=== PATIENT | female | born 1940 | race Caucasian/White ===

== ENCOUNTER 2019-10-31 20:59 | Inpatient (IN) | payer OTHER, MEDICAID ==
[~2019-10-31] VITALS: Ht 152.4 cm; Wt 64.9 kg
[2019-10-31 20:59] VITALS: BP_SYST 133
--- NOTE | 2019-10-31 20:59 | NUR ---
Placed in room 6 . Placed on quality assurance monitor final, blood pressure machine and pulse oximeter. To gown for exam. Side rails up. Assumed care.
--- NOTE | 2019-10-31 21:10 | NUR ---
Patient arrived via [facility]. Patient was brought in at request of daughter. Patients daughter at bedside. Daughter states patient has been deteriorating over the past 2 weeks. Noting increased confusion, back pain, and frequent falls. Patient had a mechanical fall per daughter today, no head strike or LOC. Patient states she has had ongoing back pain, worsening last week. Patient was seen at urgent care on 10/28/2019, given a prescription for baclofen to take before bedtime. Per daughter, given 30 pills, and she counted today and there are 20 remaining. Concerns were brought up regarding decline. Per family, they do not want her to go to a home, but concerned regarding status. Will continue to follow up.
--- NOTE | 2019-10-31 21:26 | NUR ---
ER at bedside examining patient.
[2019-10-31] MEDS ORDERED: traMADol HCL HCL 50 MG TABLET (ULTRAM) PO ONE (22:30)
[2019-10-31 22:57] LABS: BASOPHILS % (AUTO) 0.1 % (0.0-2.0); EOSINOPHILS % (AUTO) 0.7 % (0.0-4.0); HEMATOCRIT 36.9 % (36-48); HEMOGLOBIN 12.3 g/dL (12.0-16.0); LYMPHOCYTES # (AUTO) 2.9 K/uL (1.0-5.5); LYMPHOCYTES % (AUTO) 42.8 % (20.5-51.5); MEAN CORPUSCULAR HEMOGLOBIN 33 pg (27-31); MEAN CORPUSCULAR HGB CONC 33 % (32-36); MEAN CORPUSCULAR VOLUME 100 fL (79.0-98.0); MONOCYTES # (AUTO) 0.6 K/uL (0.0-1.0); MONOCYTES % (AUTO) 9.3 % (1.7-9.3); NEUTROPHILS # (AUTO) 3.2 K/uL (1.8-7.7); NEUTROPHILS % (AUTO) 47.1 % (40.0-70.0); PLATELET COUNT (AUTO) 230 K/uL (130-430); RED BLOOD CELL COUNT(AUTO) 3.71 MIL/uL (4.2-6.2); RED CELL DISTRIBUTION WIDTH 16.6 % (9.0-15.0); WHITE BLOOD COUNT (AUTO) 6.8 K/uL (4.8-10.8)
--- NOTE | 2019-10-31 22:57 | NUR ---
Patient given pain medication per MD orders. Patient repositioned for comfort, given pillow for comfort.
[2019-10-31 23:00] LABS: ANION GAP 9 (5-15); CALCIUM 8.5 mg/dL (8.4-11.0); CHLORIDE 103 mmol/L (98-107); CREATININE 0.77 mg/dL (0.55-1.30); GLUCOSE 114 mg/dL (70-99); POTASSIUM 3.5 mmol/L (3.5-5.1); SODIUM SERUM 137 mmol/L (136-145); UREA NITROGEN, BLOOD 27 mg/dL (8-21)
[2019-10-31 23:06] LABS: ALANINE AMINOTRANSFERASE 40 U/L (12-78); ALBUMIN 3.4 g/dL (3.4-4.8); ASPARTATE AMINOTRANSFERASE 20 U/L (10-37); LIPASE 82 U/L (73-393); TOTAL BILIRUBIN 0.4 mg/dL (0.0-1.0)
--- NOTE | 2019-10-31 23:23 | NUR ---
Patient becoming more anxious at this time. Patients daughters remain at bedside for comfort. MD aware of anxiety, will follow up regarding orders.
--- NOTE | 2019-10-31 23:24 | NUR ---
Patient and family refusing straight cath at this time. Will continue to follow up.
--- NOTE | 2019-11-01 00:23 | NUR ---
Patient taken to CT scan via gurney. Pain was decreasing at time of travel to CT. Patient was moved over to CT machine and pain intensified, and causing spasms. Pain is rated 9/10. MD gave verbal order for Toradol 30mg IVP after confirming BUN and Creatinine results. Patient given toradol in CT scan. Daughters went to CT with her for comfort.
[2019-11-01] MEDS ORDERED: KETOROLAC TROMETHAMINE 30 MG VIAL IVP ONE (00:30)
[2019-11-01] MEDS ORDERED: KETOROLAC TROMETHAMINE 30 MG VIAL ONE ×2 (00:33→12:48)
--- NOTE | 2019-11-01 00:44 | NUR ---
Patient returned to room from CT. Patient more comfortable from the Toradol administration. Per family patient complaints of head pain now.
[2019-11-01 01:40] LABS: BILIRUBIN,URINE NEGATIVE (NEGATIVE); BLOOD, URINE NEGATIVE (NEGATIVE); CLARITY/URINE CLEAR (CLEAR); COLOR,URINE YELLOW (YELLOW); GLUCOSE,URINE NEGATIVE (NEGATIVE); KETONES,URINE TRACE (NEGATIVE); LEUKOCYTE ESTERASE ,URINE NEGATIVE (NEGATIVE); NITRITE, URINE NEGATIVE (NEGATIVE); PH,URINE 5.5 (5.0-8.0); PROTEIN URINE NEGATIVE (NEGATIVE); UROBILINOGEN,URINE 0.2 (0.2-1.0)
[2019-11-01 01:51] LABS: BARBITURATE, URINE NEGATIVE (NEG <=200); BENZODIAZEPINE, URINE NEGATIVE (NEG <=150); CANNABINOID, URINE NEGATIVE (NEG <=50); COCAINE, URINE NEGATIVE (NEG <=150); METHAMPHETAMINES SCREEN,URINE NEGATIVE (NEG <=500); OPIATE, URINE NEGATIVE (NEG <=100); PHENCYCLIDINE SCREEN,URINE NEGATIVE (NEG <=25); UR TRICYCLIC ANTIDEPRESSANTS NEGATIVE (NEG <=300); URINE AMPHETAMINE NEGATIVE (NEG <=500); URINE METHADONE NEGATIVE (NEG <=200); URINE OXYCODONE SCREEN NEGATIVE (NEG <=100); URINE PROPOXYPHENE SCREEN NEGATIVE (NEG <=300)
--- NOTE | 2019-11-01 02:12 | NUR ---
Patient resting comfortably. Needs are met at this time. Family remains at bedside. Patient VSS at this time. Will continue to follow up and monitor.
--- NOTE | 2019-11-01 03:11 | NUR ---
Patient care endorsed to MARLINE Roche.
[2019-11-01] MEDS ORDERED: LEVO88TA2 PO (04:07)
[2019-11-01] MEDS ORDERED: LISI-209 PO (04:16)
[2019-11-01] MEDS ORDERED: PRED5TAB PO (04:16)
[2019-11-01] MEDS ORDERED: BACL10TA PO (04:16)
[2019-11-01] MEDS ORDERED: METO25TA6 PO (04:16)
[2019-11-01] MEDS ORDERED: METH2.5T PO (04:16)
[2019-11-01] MEDS ORDERED: traMADol HCL HCL 50 MG TABLET (ULTRAM) PO ONE (05:00)
[2019-11-01 08:00] VITALS: BP_SYST 111
--- NOTE | 2019-11-01 08:00 | NUR ---
initial notes rec patient awake alert in a lot of pain accompanied by her daughters. ivl on the r ac intact. no infiltration noted. resp easy and unlabored . bed to the lowest position and side rails up and locked. call light within reached and family at bedside with patient. made patient comfortable.
--- NOTE | 2019-11-01 08:20 | NUR ---
Patient transferred to Med-Surg unit room 105 B on hospital bed. Endorsed bedside report to MST RN using SBAR approach for continuation of care.
[2019-11-01] MEDS ORDERED: HYDROcodone/ACETAMIN 5-325 MG TAB (NORCO/ VICODIN) PO PRN (12:00)
[2019-11-01] MEDS ORDERED: ONDANSETRON HCL 4 MG/2 ML VIAL IVP PRN (12:00)
[2019-11-01] MEDS ORDERED: LORazepam 2 MG/ML VIAL IVP PRN (12:00)
[2019-11-01] MEDS ORDERED: ACETAMINOPHEN 325 MG TABLET PO PRN (12:00)
--- NOTE | 2019-11-01 13:31 | NUR ---
Physical Therapy order has been received and the chart reviewed. Patient and daughters requested to defer the evaluation this afternoon and attempt tomorrow morning because the patient is experiencing severe pain. Nursing has administered pain medication. Plan: Attempt evaluation tomorrow.
[2019-11-01] MEDS: BACLOFEN 10 MG TABLET PO SCH ×2 (13:55→21:54)
[2019-11-01] MEDS: traMADol HCL HCL 50 MG TABLET (ULTRAM) PO PRN (13:56)
[2019-11-01] MEDS: NORMAL SALINE 5 ML DISP.SYRIN IVF SCH ×2 (13:57→21:55)
[2019-11-01] MEDS ORDERED: NORMAL SALINE 5 ML DISP.SYRIN IVF SCH (14:00)
--- NOTE | 2019-11-01 14:20 | NUR ---
DCPA and Senior Security Engineer Contact: INVENTORY ADMINISTRATOR met with Pt. and daughters at bedside, Kathy Galindo , daughter listed as person to notify is Surekha Mercado is he correct number. Pt. is in pain , consented to speak to daughters regarding DCP and care. Pt. has [facility], and [facility]. Pt. PCP is Dr. Dennise Rainey . Pt. lives in and senior independent living complex. Pt has [facility] workers in addition to her 5 daughters who assist and rotate with her care. She was ambulatory, lives on the second floor , complex has and elevator. Minimal assist with a walker. She required minimal assistance with her ADLs through [facility] care givers and family. Pt. was using a walker at home only, no other DME. Pt. has one previous SNF stay from 06/2019 to 09/2019 at [facility] and utilized [facility] for PT/ OT once she returned home. Family stated that they had no preference for SNF or rehab center, [facility] would be okay, however they would like information on other facilities as well. DCP would be to return to home with caregiver support at previous living arrangement. No SS concern at this time. CM, SS and DCP to remain available as needed. Addendum: 11/01/19 at 1425 by Debbie Mauricio LCSW Time correction met w/ family at 11:30 AM
[2019-11-01] MEDS: KETOROLAC TROMETHAMINE 30 MG VIAL IM PRN ×2 (16:49→23:57)
--- NOTE | 2019-11-01 19:00 | NUR ---
closing notes seen by dr luu at bedside and updated re patient condition. no sob noted. resting comfortably at this time. call light withn reached.
--- NOTE | 2019-11-01 19:10 | NUR ---
OPENING NOTES Receive report from morning shift nurse. Patient awake, AOx4. No signs of respiratory distress and discomfort noted. On Room air with O2 sat of 94%, tolerating well. IVF site, patency noted. Call light within reach, patient educated to use call light when assistance is needed, patient verbalized understanding. Safety precautions in place. Bed locked and in lowest position. Bed alarm on. 2 side rails up. Will continue to monitor patient.
[2019-11-01] MEDS ORDERED: DOCUSATE SODIUM 100 MG CAPSULE PO PRN (19:30)
[2019-11-01 20:00] VITALS: BP_SYST 120
--- NOTE | 2019-11-01 21:38 | NUR ---
MED PASS Due medication given at this time, patient tolerated well. No signs of respiratory distress and discomfort noted. Denies pain and discomfort at this time. Safety precautions in place. Will continue to monitor patient.
[2019-11-01] MEDS: METOPROLOL TARTRATE 25 MG TABLET PO SCH (21:55)
[2019-11-01 23:56] VITALS: BP_SYST 109
--- NOTE | 2019-11-01 23:57 | NUR ---
PAIN Patient verbalized 6/10 lower back pain. PRN for pain medication given at this time via IVP, patient tolerated well. No signs of respiratory distress noted. Safety precautions in place. Will continue to monitor patient.
--- NOTE | 2019-11-02 02:32 | NUR ---
RN ROUNDS Patient asleep at this time. No signs of respiratory distress and discomfort noted. Breathing even and unlabored. Safety precautions in place. Call light within reach. Will continue to monitor patient.
[2019-11-02] MEDS: NORMAL SALINE 5 ML DISP.SYRIN IVF SCH ×3 (06:07→20:31)
[2019-11-02] MEDS: KETOROLAC TROMETHAMINE 30 MG VIAL IM PRN ×2 (06:07→12:51)
--- NOTE | 2019-11-02 06:49 | NUR ---
CLOSING NOTES Patient awake at this time. No signs of respiratory distress and discomfort noted. Breathing even and unlabored. IV site, patency noted. Call light within reach. SCD's attached and operating well. Bed locked and lowest position. Safety precautions in place. All needs met throughout the shift will endorse to oncoming nurse for continuity of care.
[2019-11-02 07:52] LABS: BASOPHILS % (AUTO) 0.3 % (0.0-2.0); EOSINOPHILS # (AUTO) 0.2 K/uL (0.0-0.4); EOSINOPHILS % (AUTO) 2.2 % (0.0-4.0); HEMATOCRIT 35.3 % (36-48); LYMPHOCYTES # (AUTO) 3.1 K/uL (1.0-5.5); LYMPHOCYTES % (AUTO) 38.6 % (20.5-51.5); MEAN CORPUSCULAR HEMOGLOBIN 34 pg (27-31); MEAN CORPUSCULAR HGB CONC 34 % (32-36); MEAN CORPUSCULAR VOLUME 100 fL (79.0-98.0); MONOCYTES # (AUTO) 0.6 K/uL (0.0-1.0); MONOCYTES % (AUTO) 8.1 % (1.7-9.3); NEUTROPHILS % (AUTO) 50.8 % (40.0-70.0); PLATELET COUNT (AUTO) 215 K/uL (130-430); RED BLOOD CELL COUNT(AUTO) 3.54 MIL/uL (4.2-6.2); RED CELL DISTRIBUTION WIDTH 16.1 % (9.0-15.0); WHITE BLOOD COUNT (AUTO) 7.9 K/uL (4.8-10.8)
--- NOTE | 2019-11-02 08:00 | NUR ---
initial notes rec patient awake alert with hob slightly elevated. ivl on the l forearm intact. no infiltration noted. resp easy and unlabored. bed to the lowest position and side rails up and locked. call light within reached. c.o pain and will medicate patient.
[2019-11-02 08:01] LABS: ANION GAP 10 (5-15); CALCIUM 7.9 mg/dL (8.4-11.0); CHLORIDE 103 mmol/L (98-107); CREATININE 0.62 mg/dL (0.55-1.30); GLUCOSE 96 mg/dL (70-99); POTASSIUM 3.2 mmol/L (3.5-5.1); SODIUM SERUM 136 mmol/L (136-145); UREA NITROGEN, BLOOD 24 mg/dL (8-21)
[2019-11-02] MEDS: LISINOPRIL 5 MG TABLET PO SCH (08:32)
[2019-11-02] MEDS: traMADol HCL HCL 50 MG TABLET (ULTRAM) PO PRN (08:32)
[2019-11-02] MEDS: BACLOFEN 10 MG TABLET PO SCH ×3 (08:32→20:29)
[2019-11-02] MEDS: METOPROLOL TARTRATE 25 MG TABLET PO SCH ×2 (08:33→20:31)
[2019-11-02 08:41] VITALS: BP_SYST 114
--- NOTE | 2019-11-02 10:20 | NUR ---
Nutrition Update Eduardo Scale 15 noted. Pt admitted for chronic pain. Diet: 2 gm Na BMI: 28.1 kg/m2 RD to follow per nutrition care standards.
[2019-11-02 12:33] VITALS: BP_SYST 106
--- NOTE | 2019-11-02 12:58 | NUR ---
rounds medicated as ordered after lunch. call light withn reached. no osb noted.
[2019-11-02] MEDS: LEVOTHYROXINE SODIUM 0.088 MG TABLET PO SCH (15:31)
[2019-11-02 16:48] VITALS: BP_SYST 112
--- NOTE | 2019-11-02 19:40 | NUR ---
ROUNDS PATIENT RESTING COMFORTABLY IN BED, NOT IN DISTRESS, VITALS STABLE. DENIES ANY PAIN AND DISCOMFORT AT THIS TIME. ASSESSMENT DONE AND DOCUMENTED. SEE FLOWSHEET. NEEDS ATTENDED TO. SAFETY AND FALL MEASURES IN PLACED. BED IN LOW AND LOCKED POSITION. BED ALARM ON. CALL LIGHT PLACED WITHIN REACH.
--- NOTE | 2019-11-02 20:11 | NUR ---
closing notes pain is controlled per patient but will still need pain med. daughter at bedside. no sob noted. uses the bedpan at intervals. no osb noted. awaiting for dr luu.
--- NOTE | 2019-11-02 21:15 | NUR ---
MEDICATION DUE MEDICATIONS GIVEN SCHEDULED, TOLERATED WELL. WILL CONTINUE TO MONITOR.
--- NOTE | 2019-11-03 00:14 | NUR ---
ROUNDS PATIENT ASLEEP, RESPIRATIONS EVEN AND UNLABORED, NO SIGNS OF ANY PAIN AND DISCOMFORT NOTED. WILL CONTINUE TO MONITOR.
[2019-11-03 01:56] VITALS: BP_SYST 131
--- NOTE | 2019-11-03 02:09 | NUR ---
ROUNDS ASLEEP, NO SOB NOR PAIN AND DISCOMFORT NOTED. WILL CONTINUE TO MONITOR.
--- NOTE | 2019-11-03 04:25 | NUR ---
PATIENT RESTING: Patient resting quietly. No acute distress noted. Vital signs within normal range.
[2019-11-03 06:30] LABS: BASOPHILS % (AUTO) 0.3 % (0.0-2.0); EOSINOPHILS # (AUTO) 0.2 K/uL (0.0-0.4); EOSINOPHILS % (AUTO) 1.8 % (0.0-4.0); HEMATOCRIT 34.8 % (36-48); HEMOGLOBIN 11.9 g/dL (12.0-16.0); LYMPHOCYTES % (AUTO) 33.2 % (20.5-51.5); MEAN CORPUSCULAR HEMOGLOBIN 34 pg (27-31); MEAN CORPUSCULAR HGB CONC 34 % (32-36); MEAN CORPUSCULAR VOLUME 99 fL (79.0-98.0); MONOCYTES # (AUTO) 0.6 K/uL (0.0-1.0); MONOCYTES % (AUTO) 6.3 % (1.7-9.3); NEUTROPHILS # (AUTO) 5.3 K/uL (1.8-7.7); NEUTROPHILS % (AUTO) 58.4 % (40.0-70.0); PLATELET COUNT (AUTO) 215 K/uL (130-430); RED BLOOD CELL COUNT(AUTO) 3.51 MIL/uL (4.2-6.2); RED CELL DISTRIBUTION WIDTH 16.3 % (9.0-15.0); WHITE BLOOD COUNT (AUTO) 9.1 K/uL (4.8-10.8)
[2019-11-03] MEDS: NORMAL SALINE 5 ML DISP.SYRIN IVF SCH ×3 (06:31→20:35)
[2019-11-03 07:01] LABS: ANION GAP 9 (5-15); CHLORIDE 102 mmol/L (98-107); CREATININE 0.62 mg/dL (0.55-1.30); GLUCOSE 130 mg/dL (70-99); POTASSIUM 3.2 mmol/L (3.5-5.1); SODIUM SERUM 134 mmol/L (136-145); UREA NITROGEN, BLOOD 26 mg/dL (8-21)
--- NOTE | 2019-11-03 07:20 | NUR ---
Am Rounds: Patient lying on the bed.Awake,alert and oriented x3. Call light with in reach. Bed locked at lowest position. Needs attended to. Continue to monitor.
[2019-11-03 08:09] VITALS: BP_SYST 108; BP_SYST 116
--- NOTE | 2019-11-03 08:39 | NUR ---
Pain meds: Patient moaning,due po pain meds given per request. No adverse reactions noted.
[2019-11-03] MEDS: HYDROcodone/ACETAMIN 10-325 MG TAB PO PRN ×3 (08:49→23:11)
[2019-11-03] MEDS: BACLOFEN 10 MG TABLET PO SCH ×3 (08:49→20:33)
[2019-11-03] MEDS: METOPROLOL TARTRATE 25 MG TABLET PO SCH ×2 (08:53→20:35)
[2019-11-03] MEDS: LISINOPRIL 5 MG TABLET PO SCH (09:00)
[2019-11-03] MEDS: LEVOTHYROXINE SODIUM 0.088 MG TABLET PO SCH (09:25)
[2019-11-03 11:22] VITALS: BP_SYST 97
[2019-11-03] MEDS ORDERED: POTASSIUM CHLORIDE 20 MEQ TAB.PRT.SR PO ONE ×2 (13:00→15:15)
--- NOTE | 2019-11-03 14:40 | NUR ---
Case mgt: Dtr Surekha wants pt going to [facility] (she was there Jun to Sep 2019)- I faxed snf referral to [place] at fax#[phone]--ph#[phone]--I called Elida, s/w Nadege--she will have bed tomorrow--no isolation needed at this time..will f/u in am.
[2019-11-03 15:39] VITALS: BP_SYST 116
[2019-11-03] MEDS: D5/0.45 NS 1,000 ML IV SCH (15:40)
--- NOTE | 2019-11-03 15:40 | NUR ---
Iv fluids: Started iv fluids at 100c/h as ordered at left forearm intact.Family at the bedside. No acute distress.
--- NOTE | 2019-11-03 16:36 | NUR ---
Dietitian Recommendations * Recommend 2 gm Na, chopped diet w/ Ensure Enlive BID (vanilla flavor preferred) ONS provides an additional 1050 kcal/day, 60 gm protein/day FAUSTO GARCIA Please refer to Nutrition Assessment for details. Addendum: 11/03/19 at [address] Amended: Links added.
--- NOTE | 2019-11-03 17:35 | NUR ---
Rn Rounds: Sleeping during rounds. Not in any distress.
--- NOTE | 2019-11-03 18:18 | NUR ---
Closing Notes: Patient on side lying,sleeping. Call light with in reach. Bed locked at lowest position. No distress. Safety measures rendered.Condition guarded.
--- NOTE | 2019-11-03 19:40 | NUR ---
ROUNDS PATIENT RESTING COMFORTABLY IN BED, NOT IN DISTRESS, VITALS STABLE, NO PAIN AND DISCOMFORT NOTED AT THIS TIME. ASSESSMENT DONE AND DOCUMENTED. SEE FLOWSHEET. NEEDS ATTENDED TO. SAFETY AND FALL MEASURES IN PLACED. BED IN LOW AND LOCKED POSITION. BED ALARM ON. CALL LIGHT PLACED WITHIN REACH.
--- NOTE | 2019-11-03 21:16 | NUR ---
MEDICATION DUE MEDICATIONS GIVEN SCHEDULED, TOLERATED WELL. WILL CONTINUE TO MONITOR.
--- NOTE | 2019-11-04 00:17 | NUR ---
PATIENT RESTING: Patient resting quietly. No acute distress noted. Vital signs within normal range.
[2019-11-04 02:19] VITALS: BP_SYST 119
--- NOTE | 2019-11-04 02:25 | NUR ---
ROUNDS PATIENT ASLEEP, RESPIRATIONS EVEN AND UNLABORED, VITALS STABLE. WILL CONTINUE TO MONITOR.
--- NOTE | 2019-11-04 04:23 | NUR ---
PATIENT RESTING: Patient resting quietly. No acute distress noted. Vital signs within normal range.
[2019-11-04] MEDS: D5/0.45 NS 1,000 ML IV SCH (05:08)
[2019-11-04] MEDS: HYDROcodone/ACETAMIN 10-325 MG TAB PO PRN ×3 (05:12→15:48)
[2019-11-04] MEDS: NORMAL SALINE 5 ML DISP.SYRIN IVF SCH ×2 (06:27→15:51)
[2019-11-04] MEDS: LEVOTHYROXINE SODIUM 0.088 MG TABLET PO SCH (06:27)
[2019-11-04 06:34] LABS: ANION GAP 7 (5-15); CALCIUM 7.6 mg/dL (8.4-11.0); CHLORIDE 104 mmol/L (98-107); GLUCOSE 105 mg/dL (70-99); POTASSIUM 3.8 mmol/L (3.5-5.1); SODIUM SERUM 132 mmol/L (136-145); UREA NITROGEN, BLOOD 17 mg/dL (8-21)
[2019-11-04 06:53] LABS: BASOPHILS % (AUTO) 0.3 % (0.0-2.0); EOSINOPHILS # (AUTO) 0.2 K/uL (0.0-0.4); EOSINOPHILS % (AUTO) 2.3 % (0.0-4.0); HEMATOCRIT 34.1 % (36-48); HEMOGLOBIN 11.5 g/dL (12.0-16.0); LYMPHOCYTES # (AUTO) 2.6 K/uL (1.0-5.5); LYMPHOCYTES % (AUTO) 34.9 % (20.5-51.5); MEAN CORPUSCULAR HEMOGLOBIN 34 pg (27-31); MEAN CORPUSCULAR HGB CONC 34 % (32-36); MEAN CORPUSCULAR VOLUME 100 fL (79.0-98.0); MONOCYTES # (AUTO) 0.5 K/uL (0.0-1.0); MONOCYTES % (AUTO) 7.1 % (1.7-9.3); NEUTROPHILS # (AUTO) 4.1 K/uL (1.8-7.7); NEUTROPHILS % (AUTO) 55.4 % (40.0-70.0); PLATELET COUNT (AUTO) 200 K/uL (130-430); RED CELL DISTRIBUTION WIDTH 16.9 % (9.0-15.0); WHITE BLOOD COUNT (AUTO) 7.3 K/uL (4.8-10.8)
--- NOTE | 2019-11-04 07:25 | NUR ---
AM ROUNDS: PATIENT SLEEPING DURING ROUNDS.IV FLUIDS RUNNING AT LEFT FOREARM INTACT. NO DISTRESS. BED LOCKED AT LOWEST POSITION. BED ALARM ON. CONTINUE TO MONITOR.
[2019-11-04 08:51] VITALS: BP_SYST 123
[2019-11-04] MEDS: LISINOPRIL 5 MG TABLET PO SCH (09:14)
[2019-11-04] MEDS: METOPROLOL TARTRATE 25 MG TABLET PO SCH (09:14)
[2019-11-04] MEDS: BACLOFEN 10 MG TABLET PO SCH ×2 (09:14→15:48)
--- NOTE | 2019-11-04 09:30 | NUR ---
RN ROUNDS: NO ACUTE DISTRESS. DAUGHTER AT THE BEDSIDE.
--- NOTE | 2019-11-04 10:06 | NUR ---
Discharge Planning Phoned [facility], , and spoke with Nadege. She stated that a bed is available for patient, Room 3B, after 1pm. Notified Gala HORAN. There is no discharge order at this time. Addendum: 11/04/19 at 1107 by Enma Barber LCSW Spoke with patient's daughter and RN at bedside. Daughter asking about senior living plan. She will discuss further with MD. Patient was at [facility] in the past and they were very happy with patient's care there. Notified her that a room was ready at [facility] for patient if discharged today. Addendum: 11/04/19 at 1435 by Enma Barber LCSW Arranged WILL CALL S ambulance transport: Care [phone]. [facility], p [phone] f [phone], Room 3B. Approved by Packet placed in nurses' station. Addendum: 11/04/19 at 1533 by Enma [facility] ambulance parts picker 16:30
--- NOTE | 2019-11-04 10:10 | NUR ---
PAIN MEDS: PATIENT MOANING. DUE PO PAIN MEDS GIVEN NEEDED. NO PROBLEM.
[2019-11-04 11:58] VITALS: BP_SYST 97
--- NOTE | 2019-11-04 12:30 | NUR ---
LUNCH: PATIENT'S DAUGHTER FED PATIENT. EAT FAIRLY.
[2019-11-04] MEDS: KETOROLAC TROMETHAMINE 30 MG VIAL IM PRN (14:40)
[2019-11-04] MEDS ORDERED: DOCU-144 PO ×2 (15:09→16:07)
[2019-11-04 15:42] VITALS: BP_SYST 112
[2019-11-04 15:52] VITALS: BP_SYST 112
--- NOTE | 2019-11-04 15:52 | NUR ---
PAIN MEDS: DUE PO PAIN MEDS GIVEN PRIOR TO TRANSFER. NO DISTRESS.
[2019-11-04] MEDS ORDERED: HYDR-4274 PO (16:13)
[2019-11-04] MEDS ORDERED: HYDR-4272 PO (16:14)
--- NOTE | 2019-11-04 16:15 | NUR ---
REPORT: REPORT GIVEN BY AKASH IVY FROM [facility].
--- NOTE | 2019-11-04 16:55 | NUR ---
DC TRANSFER NOTES: TRANSFER PACKETS GIVEN TO [facility]IV KEPT PER FAMILY'S REQUEST DUE TO HARD STICK IF NEEDED.SPOKE WITH ELO-NURSED FROM [facility] AND AWARE. IV SALINE LOCK AT RIGHT ARM,CLEAN AND DRY. NO PERSONAL BELONGINGS NOTED.FAMILY AT THE BEDSIDE DURING TRANSFER. [facility] TRANSPORTED PATIENT TO [facility], IN STABLE CONDITION.
--- NOTE | 2019-11-05 13:48 | NUR ---
PHYSICAL THERAPY CO-SIGN The Physical Therapy Progress Notes documented by Gaming Table Operator have been reviewed. Reviewed/Co-Signed by: Suhas Thorpe PT Documentation Done by: APOLONIA GARCIA PTA Addendum: 11/05/19 at 1349 by Suhsa Thorpe PT Amended: Links added.
== END 2019-11-04 16:55 | DRG 552 ==
LOC: SED 20:59 → SMU 11-01 04:27
PROVIDERS: ADMIT Preventive Medicine Preventive Medicine/Occupational Environmental Medicine; ATTEND Preventive Medicine Preventive Medicine/Occupational Environmental Medicine
DX: S32.009A Unspecified fracture of unspecified lumbar vertebra, initial encounter for closed fracture (principal); S22.31XA Fracture of one rib, right side, initial encounter for closed fracture; E87.1 Hypo-osmolality and hyponatremia; M06.9 Rheumatoid arthritis, unspecified; E03.9 Hypothyroidism, unspecified; D64.9 Anemia, unspecified; E83.51 Hypocalcemia; R73.9 Hyperglycemia, unspecified; E87.6 Hypokalemia; I11.9 Hypertensive heart disease without heart failure; W18.39XA Other fall on same level, initial encounter; Z91.81 History of falling; Z88.5 Allergy status to narcotic agent; Z79.899 Other long term (current) drug therapy; Z88.8 Allergy status to other drugs, medicaments and biological substances; Z98.1 Arthrodesis status; Y93.89 Activity, other specified; Y92.89 Other specified places as the place of occurrence of the external cause; Y99.8 Other external cause status
CPT/HCPCS: 36415; 70450-TC; 72128; 72131; 80048; 80053; 80307; 81003; 82550-TC; 83605; 83690-TC; 83880; 84484; 85025; 85610-TC; 85730-TC; 87040-TC; 87086; 93005; 96374; 97110-GP; 99285; G0481; J1885